=== PATIENT | female | born 1940 | race Caucasian/White ===

== ENCOUNTER 2019-08-11 15:36 | Emergency (ER) | payer OTHER, SELFPAY ==
[2019-08-11] VITALS (90 sets, daily range): BP systolic 131–234; BP diastolic 68–94; PULSE 43–55; RESP 12–28; TEMP 36.7; O2SAT 89–97
--- NOTE | 2019-08-11 15:44 | DI.CT_ITS ---
EXAM: CT BRAIN NECK CTA CLINICAL HISTORY: acute stroke. TECHNIQUE: Axial CT angiography was performed with multi-slice acquisition and multi-planar and/or [address] angiography of the cervicocranial region was performed with bolus infusion of 100 cc of Omnipaque 350. COMPARISON: No exams were available for comparison FINDINGS: Preliminary noncontrast CT of the head shows no evidence of intracranial hemorrhage, mass effect or m idline shift. Mild cerebral atrophy. Images obtained through the lung apices are unremarkable excep t for some pulmonary emphysematous change. Tracheolaryngeal structures appear intact. No cervical m ass or adenopathy. Visualized aortic arch appears intact with mild atheromatous calcification. Visu alized pulmonary arterial circulation is unremarkable. Common, internal and external carotid arteries are unremarkable with no aneurysm, stenosis or dissect ion. Vertebral arteries are unremarkable bilaterally except for approximately 30-50 percent luminal diameter stenosis at the origin of the left vertebral artery. The basilar artery appears normal. In tracranial ICAs appear normal bilaterally. No evidence of aneurysm, dissection or stenosis. Anterio r, middle and posterior cerebral arteries bilaterally appear unremarkable as do their major branches with no evidence of aneurysm, dissection or stenosis. 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 No additional significant fi ndings.
--- NOTE | 2019-08-11 15:48 | W.ED.GENAD ---
Discharge Plan Disposition Patient Disposition: [facility] Condition: Stable Discharge Details Chief Complaint: CVA/TIA Clinical Impression: Acute cerebrovascular accident, Hypertensive emergency Primary Care Provider: Therese,Local ED Provider: Radha Alva Discharge Data Discharge Date/Time-TO BE ENTERED AT DEPARTURE: 08/11/19 18:20 Medical Decision Making 1540 -- 79-year-old female with history of depression and recent DVT on Eliquis presents with difficulty finding words that started 20 minutes prior to arrival. Systolic BP mildly hypertensive. 190s to 200s. Heart rate 40s to 50s. She is afebrile. patient has a clear expressive aphasia, she states her name is liane Morin and then Snehal Maldonado. She initially states the year is 193 and then 2018. When asked where she is, she initially states a word that does not have to do with location and then she states [facility] but is unable to states she is in the hospital. She has no drift. Muscle strength is 5/5. Remainder of cranial nerves within normal limits. EKG notes a rate of 48, sinus, no acute ST elevation or depression. First-degree block with MD interval 218. 1555 --CT head and CTA head/neck negative. NIH score of 4 based on expressive aphasia. Discussed with [facility] transfer center who will contact neurology. 1620 --discussed with [facility] neurology -recommends TPA. Recommends labetalol 10 mg every 5 minutes x2 doses to keep blood pressure less than 185/110. Accepts patient for transfer to neuro critical care. Accepting physician Dr. Nelson. 1645 --no change in BP after first dose of labetalol. BP 130/90 after second dose of labetalol. 1655 --just prior to administering TPA, patient was able to find some words and demonstrated improvement. NIH score approximately 1-2. Discussed with [facility] neurology and they state you can still give tPA after discussion with patient regarding risks and benefits. With discussion with patient and in room, the risks of intracranial hemorrhage versus the risks of a stroke in the next few days if this is a TIA were discussed. At this time, patient had difficulty finding words for common objects again. and patient would now like to do TPA. BP 220/82. Will start nicardipine drip to lower BP prior to giving tPA. Dr. Singleton was notified of this update and accepts patient for transfer. BP 180/68 and TPA started. Medical Records Medical records reviewed: Yes I reviewed the patient's medical records. Imaging Data Radiologic Study: Radiologist's impression: CT BRAIN NECK CTA CLINICAL HISTORY: acute stroke. TECHNIQUE: Axial CT angiography was performed with multi-slice acquisition and multi-planar and/or 3D reconstructions. CT angiography of the cervicocranial region was performed with bolus infusion of 100 cc of Omnipaque 350. COMPARISON: No exams were available for comparison FINDINGS: Preliminary noncontrast CT of the head shows no evidence of intracranial hemorrhage, mass effect or midline shift. Mild cerebral atrophy. Images obtained through the lung apices are unremarkable except for some pulmonary emphysematous change. Tracheolaryngeal structures appear intact. No cervical mass or adenopathy. Visualized aortic arch appears intact with mild atheromatous calcification. Visualized pulmonary arterial circulation is unremarkable. Common, internal and external carotid arteries are unremarkable with no aneurysm, stenosis or dissection. Vertebral arteries are unremarkable bilaterally except for approximately 30-50 percent luminal diameter stenosis at the origin of the left vertebral artery. The basilar artery appears normal. Intracranial ICAs appear normal bilaterally. No evidence of aneurysm, dissection or stenosis. Anterior, middle and posterior cerebral arteries bilaterally appear unremarkable as do their major branches with no evidence of aneurysm, dissection or stenosis. 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 No additional significant findings. XR CHEST 1V IN DI DEPT INDICATION: stoke like symptoms. COMPARISON: No exams were available for comparison TECHNIQUE: 2D digital imaging was performed. FINDINGS: The heart is at the upper limits in size. Lungs are grossly clear and expanded. IMPRESSION: No evidence of acute process Lab Data Lab results reviewed: Yes I reviewed the patient's lab results. Labs: 08/11/19 16:17 Urine - Reflex from Ua Urine Culture - Pending Laboratory Tests Range/Units 08/11/19 08/11/19 08/11/19 15:45 16:00 16:00 WBC (4.4-10.8) k/cumm RBC (4.00-5.20) m/cumm Hgb (12.0-15.5) g/dL Hct (36.0-46.0) % MCV (80-95) fL MCH (27.0-33.0) pg MCHC (32.0-36.0) g/dL RDW (11.7-14.6) % Plt Count (130-400) x1000/uL MPV (8.0-11.0) fL Immature Gran % Neutrophils % Lymphocytes % Monocytes % Eosinophils % Basophils % Absolute Neutrophils (1.2-6.7) k/cumm Absolute Lymphocytes (1.2-3.4) k/cumm Absolute Monocytes (0.11-0.7) k/cumm Absolute Eosinophils (0.0-0.7) k/cumm Absolute Basophils (0.0-0.2) k/cumm PT (9.3-11.0) sec INR (0.9-1.1) APTT (21.0-31.4) sec VBG pH (7.32-7.43) 7.37 VBG pCO2 (34-47) mm/Hg 50 H VBG pO2 (28-44) mm/Hg 32 VBG HCO3 (22-28) mmol/L 29 H VBG Total CO2 (22-29) mmol/L 26 VBG O2 Saturation (70-80) % 58 L VBG Base Excess (-3-3) mmol/L 3.2 H Sodium (136-145) mmol/L 144 Potassium (3.5-5.1) mmol/L 3.4 L Chloride (98-107) mmol/L 109 H Carbon Dioxide (21.0-32.0) mmol/L 27.8 Anion Gap (3-11) mmol/L 7.2 BUN (7-18) mg/dL 19 H Creatinine (0.55-1.02) mg/dL 0.87 Estimated GFR/1.73 m2 (mL/min/1.73m2) >= 60.00 Glucose (70-100) mg/dL 112 H Calcium (8.5-10.1) mg/dL 8.8 Total Bilirubin (0.2-1.0) mg/dL 0.4 AST (15-37) U/L 21 ALT (14-59) U/L 26 Alkaline Phosphatase (46-116) U/L 86 Ammonia (11-32) umol/L Troponin I (0.00-0.06) ng/mL < 0.05 Total Protein (6.4-8.2) g/dL 7.2 Albumin (3.4-5.0) g/dL 3.7 TSH (0.36-3.74) uIU/mL Urine Color (Yellow) Urine Clarity (Clear) Urine pH (5-8) Ur Specific Gibbs (1.005-1.025) Urine Protein (Negative) mg/dL Urine Ketones (Negative) mg/dL Urine Blood (Negative) Urine Nitrite (Negative) Urine Bilirubin (Negative) Urine Urobilinogen (Up TO 0.2) EU/dL Ur Leukocyte Esterase (Negative) Urine RBC (0-2) Urine WBC (0-5) HPF Ur Epithelial Cells (Negative) HPF Urine Crystals (Negative) HPF Urine Bacteria (Negative) HPF Urine Casts (Negative) LPF Urine Mucus (Negative) Ur Culture Indicated? Urine Glucose (Negative) mg/dL Salicylates (2.8-20.0) mg/dL < 2.8 L Urine Opiates Screen (Negative) Urine Methadone Screen (Negative) Acetaminophen (10-30) ug/mL < 2 L Ur Barbiturates Screen (Negative) Ur Tricyclics Screen (Negative) Ur Amphetamines Screen (Negative) U Benzodiazepines Scrn (Negative) Urine Cocaine Screen (Negative) Ur THC Screen (Negative) Ethyl Alcohol (<3) mg/dL Range/Units 08/11/19 08/11/19 08/11/19 16:00 16:00 16:00 WBC (4.4-10.8) k/cumm 5.92 RBC (4.00-5.20) m/cumm 4.88 Hgb (12.0-15.5) g/dL 15.0 Hct (36.0-46.0) % 45.2 MCV (80-95) fL 92.6 MCH (27.0-33.0) pg 30.7 MCHC (32.0-36.0) g/dL 33.2 RDW (11.7-14.6) % 14.4 Plt Count (130-400) x1000/uL 228 MPV (8.0-11.0) fL 10.7 Immature Gran % 0.0 Neutrophils % 64.3 Lymphocytes % 23.0 Monocytes % 7.1 Eosinophils % 5.1 Basophils % 0.5 Absolute Neutrophils (1.2-6.7) k/cumm 3.81 Absolute Lymphocytes (1.2-3.4) k/cumm 1.36 Absolute Monocytes (0.11-0.7) k/cumm 0.42 Absolute Eosinophils (0.0-0.7) k/cumm 0.30 Absolute Basophils (0.0-0.2) k/cumm 0.03 PT (9.3-11.0) sec INR (0.9-1.1) APTT (21.0-31.4) sec VBG pH (7.32-7.43) VBG pCO2 (34-47) mm/Hg VBG pO2 (28-44) mm/Hg VBG HCO3 (22-28) mmol/L VBG Total CO2 (22-29) mmol/L VBG O2 Saturation (70-80) % VBG Base Excess (-3-3) mmol/L Sodium (136-145) mmol/L Potassium (3.5-5.1) mmol/L Chloride (98-107) mmol/L Carbon Dioxide (21.0-32.0) mmol/L Anion Gap (3-11) mmol/L BUN (7-18) mg/dL Creatinine (0.55-1.02) mg/dL Estimated GFR/1.73 m2 (mL/min/1.73m2) Glucose (70-100) mg/dL Calcium (8.5-10.1) mg/dL Total Bilirubin (0.2-1.0) mg/dL AST (15-37) U/L ALT (14-59) U/L Alkaline Phosphatase (46-116) U/L Ammonia (11-32) umol/L 27 Troponin I (0.00-0.06) ng/mL Total Protein (6.4-8.2) g/dL Albumin (3.4-5.0) g/dL TSH (0.36-3.74) uIU/mL 2.96 Urine Color (Yellow) Urine Clarity (Clear) Urine pH (5-8) Ur Specific Gibbs (1.005-1.025) Urine Protein (Negative) mg/dL Urine Ketones (Negative) mg/dL Urine Blood (Negative) Urine Nitrite (Negative) Urine Bilirubin (Negative) Urine Urobilinogen (Up TO 0.2) EU/dL Ur Leukocyte Esterase (Negative) Urine RBC (0-2) Urine WBC (0-5) HPF Ur Epithelial Cells (Negative) HPF Urine Crystals (Negative) HPF Urine Bacteria (Negative) HPF Urine Casts (Negative) LPF Urine Mucus (Negative) Ur Culture Indicated? Urine Glucose (Negative) mg/dL Salicylates (2.8-20.0) mg/dL Urine Opiates Screen (Negative) Urine Methadone Screen (Negative) Acetaminophen (10-30) ug/mL Ur Barbiturates Screen (Negative) Ur Tricyclics Screen (Negative) Ur Amphetamines Screen (Negative) U Benzodiazepines Scrn (Negative) Urine Cocaine Screen (Negative) Ur THC Screen (Negative) Ethyl Alcohol (<3) mg/dL < 3.0 Range/Units 08/11/19 08/11/19 08/11/19 16:00 16:17 16:17 WBC (4.4-10.8) k/cumm RBC (4.00-5.20) m/cumm Hgb (12.0-15.5) g/dL Hct (36.0-46.0) % MCV (80-95) fL MCH (27.0-33.0) pg MCHC (32.0-36.0) g/dL RDW (11.7-14.6) % Plt Count (130-400) x1000/uL MPV (8.0-11.0) fL Immature Gran % Neutrophils % Lymphocytes % Monocytes % Eosinophils % Basophils % Absolute Neutrophils (1.2-6.7) k/cumm Absolute Lymphocytes (1.2-3.4) k/cumm Absolute Monocytes (0.11-0.7) k/cumm Absolute Eosinophils (0.0-0.7) k/cumm Absolute Basophils (0.0-0.2) k/cumm PT (9.3-11.0) sec 11.0 INR (0.9-1.1) 1.1 APTT (21.0-31.4) sec 24.5 VBG pH (7.32-7.43) VBG pCO2 (34-47) mm/Hg VBG pO2 (28-44) mm/Hg VBG HCO3 (22-28) mmol/L VBG Total CO2 (22-29) mmol/L VBG O2 Saturation (70-80) % VBG Base Excess (-3-3) mmol/L Sodium (136-145) mmol/L Potassium (3.5-5.1) mmol/L Chloride (98-107) mmol/L Carbon Dioxide (21.0-32.0) mmol/L Anion Gap (3-11) mmol/L BUN (7-18) mg/dL Creatinine (0.55-1.02) mg/dL Estimated GFR/1.73 m2 (mL/min/1.73m2) Glucose (70-100) mg/dL Calcium (8.5-10.1) mg/dL Total Bilirubin (0.2-1.0) mg/dL AST (15-37) U/L ALT (14-59) U/L Alkaline Phosphatase (46-116) U/L Ammonia (11-32) umol/L Troponin I (0.00-0.06) ng/mL Total Protein (6.4-8.2) g/dL Albumin (3.4-5.0) g/dL TSH (0.36-3.74) uIU/mL Urine Color (Yellow) Yellow Urine Clarity (Clear) Sl cloudy Urine pH (5-8) 7.0 Ur Specific Gibbs (1.005-1.025) 1.015 Urine Protein (Negative) mg/dL Trace H Urine Ketones (Negative) mg/dL Negative Urine Blood (Negative) Negative Urine Nitrite (Negative) Positive H Urine Bilirubin (Negative) Negative Urine Urobilinogen (Up TO 0.2) EU/dL 0.2 Ur Leukocyte Esterase (Negative) Small H Urine RBC (0-2) 0-2 Urine WBC (0-5) HPF 5-10 Ur Epithelial Cells (Negative) HPF Rare Urine Crystals (Negative) HPF Negative Urine Bacteria (Negative) HPF Many Urine Casts (Negative) LPF Negative Urine Mucus (Negative) Negative Ur Culture Indicated? Yes Urine Glucose (Negative) mg/dL Negative Salicylates (2.8-20.0) mg/dL Urine Opiates Screen (Negative) Negative Urine Methadone Screen (Negative) Negative Acetaminophen (10-30) ug/mL Ur Barbiturates Screen (Negative) Negative Ur Tricyclics Screen (Negative) Negative Ur Amphetamines Screen (Negative) Negative U Benzodiazepines Scrn (Negative) Negative Urine Cocaine Screen (Negative) Negative Ur THC Screen (Negative) Negative Ethyl Alcohol (<3) mg/dL ECG Data Attestation: I personally reviewed and interpreted this ECG (s) as follows: Interpretation: Rate of 48, sinus, no acute ST elevation or depression. MD prolongation at 218. QTc 415. QRS 94. HPI General Mode of arrival: ambulatory. Date/Time Provider Initiated Documentation: 08/11/19 15:44. Limitations to Documentation: no limitations. Information obtained by: patient. HPI Narrative: Patient is an 79-year-old female visiting here from [place] who presents with difficulty finding words for the past 20 minutes while [address] a car. Patient's was driving who notes that patient could not find the right word and from there she was having difficulty finding the remainder of her words. She denies any headache, visual changes, slurred speech, extremity weakness or numbness, chest pain or shortness of breath. states that she had a history of DVT recently for which she took Eliquis but denies taking this at present. Patient is unable to recall the names of her medications. states that he thinks he takes an antidepressant time to time but no other regular daily medications. Related Data Allergies Allergy/AdvReac Type Severity Reaction Status Date / Time Sulfa (Sulfonamide Allergy Hives Unverified 08/11/19 17:06 Antibiotics) Review of Systems Review of Systems ROS Unobtainable: All systems reviewed & are unremarkable except as noted in HPI and below Constitutional Constitutional: Reports as per HPI, Denies chills and Denies fever(s) Eyes Eyes: Denies blurry vision ENT Ears, Nose, Mouth, and Throat: Denies dizziness, Denies sore throat and Denies throat swelling Cardiovascular Cardiovascular: Denies chest pain and Denies dyspnea Respiratory Respiratory: Denies cough and Denies dyspnea Gastrointestinal Gastrointestinal: Denies abdominal pain, Denies diarrhea and Denies vomiting Genitourinary Genitourinary: Denies hematuria and Denies dysuria Musculoskeletal Musculoskeletal: Denies back pain and Denies numbness Integumentary/Breasts Skin/Breast: Denies lesions and Denies rash Neurologic Neurologic: Reports abnormal speech, Denies dizziness, Denies focal weakness and Denies numbness Allergic/Immunologic Allergic/Immunologic: Denies throat swelling [facility] Medical History Depression (Chronic) Surgical History No significant past surgical history (Acute) Social History (Updated 08/11/19 @ 15:58 by Radha Alva DO) Smoking/Tobacco Use Status: Former Tobacco Use Alcohol Intake: current Alcohol Intake frequency: a few times a month Drug use: Never Substance use type: does not use Do you feel safe at home: Yes Do you feel safe in your relationship?: Yes Exam Const General: cooperative, healthy appearing and no acute distress HENMT Head: normal to inspection Face and sinus: normal facial exam Eyes General: appearance normal, both eyes and all related structures Pupils: PERRL EOM: EOM intact bilaterally Neck Neck: normal visual inspection and No submandibular swelling Lymphatic: no lymphadenopathy noted Chest Chest: normal inspection of the chest and no tenderness Resp Effort & Inspection: normal respiratory effort and able to speak in complete sentences Auscultation: clear to auscultation bilaterally Cardio Rate: regular rate Rhythm: regular rhythm GI Inspection: normal to inspection Palpation: soft, not firm, not rigid and nontender Auscultation: normal bowel sounds Back/Spine/Pelvis Thoracic/Lumbar Spine: thoracic and lumbar spine normal to inspection Pelvis: no pain with anterior-posterior compression Skin General skin exam: no rashes or lesions noted Neuro General: alert, awake and oriented x3 (with redirection and repeating her answers) Cognition: normal cognition Speech: expressive aphasia Motor: muscle tone normal throughout, strength 5/5 throughout, no pronator drift and no movement abnormalities noted Sensory Exam: no sensory deficits noted Extrem General: normal to inspection, full ROM, normal capillary refill, no calf tenderness bilaterally and no edema Psych Appearance: grossly normal Mental Status: mental status grossly normal Speech and Movement: speech and movement normal Affect: normal affect Critical Care Time Critical Care Time Critical Care Time: Yes Total Critical Care Time: 120
[2019-08-11] MEDS: Omnipaque 350 MG/ML 100 ML BTL IJ (16:09)
[2019-08-11 16:14] LABS: BE (Venous) 3.2 mmol/L (-3-3); HCO3 (Venous) 29 mmol/L (22-28); O2 Sat (Venous) 58 % (70-80); TCO2 (Venous) 26 mmol/L (22-29); pCO2 (Venous) 50 mm/Hg (34-47); pH (Venous) 7.37 (7.32-7.43); pO2 (Venous) 32 mm/Hg (28-44)
[2019-08-11 16:15] LABS: Absolute Basophil Count 0.03 k/cumm (0.0-0.2); Absolute Lymphocyte Count 1.36 k/cumm (1.2-3.4); Absolute Monocyte Count 0.42 k/cumm (0.11-0.7); Absolute Neutrophil Count 3.81 k/cumm (1.2-6.7); Basophils % 0.5; Eosinophils % 5.1; HCT 45.2 % (36.0-46.0); Mean Corp. HGB Concentration 33.2 g/dL (32.0-36.0); Mean Corpuscular Hemoglobin 30.7 pg (27.0-33.0); Mean Corpuscular Volume 92.6 fL (80-95); Mean Platelet Volume 10.7 fL (8.0-11.0); Monocytes % 7.1; Neutrophils % 64.3; Platelet Count 228 x1000/uL (130-400); RBC 4.88 m/cumm (4.00-5.20); RBC Distribution Width 14.4 % (11.7-14.6); White Blood Cell Count 5.92 k/cumm (4.4-10.8)
[2019-08-11 16:22] LABS: INR 1.1 (0.9-1.1); PTT Activated 24.5 sec (21.0-31.4)
[2019-08-11 16:28] LABS: Bilirubin Negative (Negative); Blood Negative (Negative); Clarity Sl Cloudy (Clear); Glucose Negative (Negative); Ketones Negative (Negative); Leukocyte Esterase Small (Negative); Nitrite Positive (Negative); Specific Gravity 1.015 (1.005-1.025); Urobilinogen 0.2 EU/dL (Up TO 0.2)
--- NOTE | 2019-08-11 16:30 | NUR.NOTE ---
Nursing Note: Pt asked to identify a variety of objects, pt shown a pen, cell phone, and a cross, pt unable to state what any of these objects were
[2019-08-11 16:32] LABS: Bacteria Many HPF (Negative); C & S Indicated? Yes; Casts Negative LPF (Negative); Crystals Negative HPF (Negative); Epithelial Cells Rare HPF (Negative); Mucus Negative (Negative); RBC 0-2 (0-2)
[2019-08-11 16:42] LABS: Ammonia 27 umol/L (11-32)
[2019-08-11] MEDS: Labetalol 100 MG/20 ML VIAL ×2 (16:50→16:55)
[2019-08-11 16:54] LABS: ALT 26 U/L (14-59); AST 21 U/L (15-37); Albumin 3.7 g/dL (3.4-5.0); Alkaline Phosphatase 86 U/L (46-116); Anion Gap 7.2 mmol/L (3-11); BUN 19 mg/dL (7-18); Bilirubin, Total 0.4 mg/dL (0.2-1.0); CO2 27.8 mmol/L (21.0-32.0); CREATININE 0.87 mg/dL (0.55-1.02); Calcium 8.8 mg/dL (8.5-10.1); Chloride 109 mmol/L (98-107); Glucose 112 mg/dL (70-100); Potassium 3.4 mmol/L (3.5-5.1); Sodium 144 mmol/L (136-145); Total Protein 7.2 g/dL (6.4-8.2)
[2019-08-11 16:54] LABS: *AMPHETAMINES SCREEN URINE Negative (Negative); *BARBITURATES SCREEN URINE Negative (Negative); *BENZODIAZEPINES SCREEN URINE Negative (Negative); Cannabinoids THC Negative (Negative); Cocaine Screen,Urine Negative (Negative); METHADONE URINE SCREEN Negative (Negative); OPIATES URINE SCREEN Negative (Negative)
[2019-08-11 16:55] LABS: Troponin I < 0.05 ng/mL (0.00-0.06)
[2019-08-11 16:55] LABS: Tricyclic Antidepressants Negative (Negative)
[2019-08-11 16:56] LABS: ETHANOL BLOOD < 3.0 mg/dL (<3); TSH (W/Ref FT4) 2.96 uIU/mL (0.36-3.74)
--- NOTE | 2019-08-11 16:59 | NUR.NOTE ---
Nursing Note: Pt now able to identify a watch, pen and cellphone and was able to identify all of them. pt states that her memory is getting better. pt patient took extended time to identify a calculator, but was able to identify it
[2019-08-11 17:02] LABS: Salicylate < 2.8 mg/dL (2.8-20.0)
[2019-08-11 17:03] LABS: Acetaminophen < 2 ug/mL (10-30)
[2019-08-11] MEDS: niCARdipine 25 MG in Normal Saline 240 ML IV (17:38)
--- NOTE | 2019-08-11 18:50 | NUR.NOTE ---
alteplase bolus of 7.3mg and infusion over 1 hour of 65.7mg.Nursing Note:
--- NOTE | 2019-08-13 09:45 | NUR.NOTE ---
Patient transferred to [facility], urine culture result faxed to [phone].Nursing Note:
== END 2019-08-11 18:20 | disposition short-term general hospital (02) ==
PROVIDERS: Student in an Organized Health Care Education/Training Program; Emergency Provider Physician Assistant
DX: I63.9 Cerebral infarction, unspecified (principal); I16.1 Hypertensive emergency; Z79.01 Long term (current) use of anticoagulants
CPT/HCPCS: 36415; 36416; 70496; 70498; 80053; 80307; 82805; 82962; 87077; 93005; 96374; 96375; 99291; 99292; 71045; 80320; 80329; 81003; 81015; 82140; 84443; 84484; 85025; 85610; 85730; 87086; 87186; 93010; J2997; J3490